=== PATIENT | male | born 1960 | race Hispanic/Latino ===

== ENCOUNTER 2016-07-15 09:00 | Emergency (ER) | payer OTHER ==
[2016-07-15 09:17] VITALS: BP 138/92
--- NOTE | 2016-07-15 09:44 | XRay Report ---
CHEST 2 VIEWS INDICATION: Chest pain, right arm tingling for 2 hours. COMPARISON: None similar at this institution. FINDINGS: PA and lateral chest radiographs demonstrate normal cardiomediastinal silhouette. Clear lungs. Intact bones. CONCLUSION: No acute disease in the chest. Thank you for the opportunity to participate in this patient's care.
[2016-07-15 09:48] LABS: Basophils % (Auto) 0.8 % (0.0-1.8); Eosinophils % (Auto) 4.1 % (0.0-4.3); Hematocrit 43.6 % (35.5-45.6); Hemoglobin 14.8 gm/dl (11.8-15.2); Mean Corpuscular HGB Conc 34 % (32-34); Mean Corpuscular Hemoglobin 30 pg (28-32); Mean Corpuscular Volume 89 fl (84-94); Platelet Count 293 K/mm3 (140-440); Red Blood Count 4.89 M/mm3 (3.65-5.03); Red Cell Distribution Width 14.6 % (13.2-15.2); White Blood Count 11.1 K/mm3 (4.5-11.0)
[2016-07-15 09:51] LABS: Anion Gap 18 mmol/L; Blood Urea Nitrogen 10 mg/dL (9-20); Calcium 8.9 mg/dL (8.4-10.2); Carbon Dioxide 25 mmol/L (22-30); Chloride 101.7 mmol/L (98-107); Glucose 102 mg/dL (75-100); Potassium 3.7 mmol/L (3.6-5.0); Sodium 141 mmol/L (137-145)
--- NOTE | 2016-07-19 01:14 | ED Elopement Review ---
ED Pt Elopement review - Results review Lab results: Laboratory Tests 07/15/16 07/15/16 09:21 09:26 WBC 11.1 H RBC 4.89 Hgb 14.8 Hct 43.6 MCV 89 MCH 30 MCHC 34 RDW 14.6 Plt Count 293 Lymph % (Auto) 22.1 Tyler % (Auto) 11.9 H Eos % (Auto) 4.1 Baso % (Auto) 0.8 Lymph # 2.5 Tyler # 1.3 H Eos # 0.5 H Baso # 0.1 Seg Neutrophils % 61.1 Seg Neutrophils # 6.8 Sodium 141 Potassium 3.7 Chloride 101.7 Carbon Dioxide 25 Anion Gap 18 BUN 10 Creatinine 0.8 Estimated GFR > 60 BUN/Creatinine Ratio 12.50 Glucose 102 H Calcium 8.9 Troponin T < 0.010 - Call Back decision Pt Call Back Decision: Call pt to return to ED [facility] (chest pain will likely require inpatient evaluation)
== END 2016-07-15 12:45 | disposition left against medical advice (07) ==
LOC: ED 09:00
DX: R07.9 Chest pain, unspecified (principal); R06.02 Shortness of breath; F41.9 Anxiety disorder, unspecified; Z53.21 Procedure and treatment not carried out due to patient leaving prior to being seen by health care provider
CPT/HCPCS: 36415; 71020; 80048; 84484; 85025; 93005; 93010